=== PATIENT | female | born 1980 | race Caucasian/White ===

== ENCOUNTER 2016-10-05 15:44 | Emergency (ER) | payer OTHER ==
[~2016-10-05] VITALS: Ht 162.6 cm; Wt 81.8 kg
[2016-10-05 15:47] VITALS: BP 114/79; PULSE 99; RESP 16; O2SAT 97
[2016-10-05 17:38] LABS: BASOPHILS % (AUTO) 0.1 % (0-3); EOSINOPHILS % (AUTO) 1.8 % (0-5); MONOCYTES % (AUTO) 5.3 % (4-12); Mean Corpuscular Hemoglobin 28.2 pg (27.0-35.0); Mean Corpuscular Volume 84.2 fL (81-100); NEUTROPHILS % (AUTO) 79.1 % (40-74); Platelet Count 322 bil/L (150-400)
[2016-10-05 18:18] LABS: Magnesium 1.8 mg/dL (1.6-2.6)
--- NOTE | 2016-10-05 18:18 | ED.REPORT ---
HPI-Abd Pain F Under 40 Date of Service Oct 05, 2016 ED Provider: MD Danielito This is a 36 year old female with a history of stroke presenting to the ED complaining of diarrhea that began one month ago. Also reports emesis that began today. Associated symptoms include fever, chills, intermittent night sweats, lower abdominal pain, and bilateral low back pain. Denies dysuria, hematuria, constipation, hematemesis, or hematochezia. Currently on Augmentin for URI, prescribed at urgent care. Completed z-pack 2 weeks ago. Nursing Notes Stated Complaint: KIDNEY PAIN Chief Complaint: Female Abdominal Pain Nursing Notes Reviewed: Yes Allergies: Coded Allergies: No Known Allergies (Verified , 06/12/15) Scheduled PRN Ondansetron ODT (Zofran ODT) 4 Mg Tablet 4 MG PO Q4H PRN PRN For Nausea General Time Seen by MD: 18:17 Chief Complaint Diarrhea moderate Hx Obtained From: Patient Sudden in Onset?: Yes Onset Occurred: 1 week ago Symptom Duration: Since onset Severity: Current: Mild Pertinent Negative: Pt denies other symptoms Recent Healthcare: No recent hospitalization, Recent doctor visit Similar Sx Previous: No Past Medical History Past Medical History Reports: Stroke Past Surgical History Knee surgery Wrist surgery Cardio seal Smoking History Never Smoker Social History Alcohol Use: 1-3 per week Drug Use: Denies drug use Other Social History: Good social support, Lives with children Ambulatory Status Independent Review of Systems Constitutional: Reports: Chills, Fever Respiratory: Denies: Non-productive cough, Shortness of breath GI: Reports: Abdominal pain, Diarrhea, Nausea, Vomiting, Denies: Constipation Female: Denies: Dysuria Musculoskeletal: Reports: Back pain Complete sys rev & neg: except as marked. Physical Exam Initial Vital Signs Vital Signs (First) Date Time Temp Pulse Resp B/P Pulse Ox O2 Delivery O2 Flow Rate FiO2 10/05/16 15:47 36.8 99 16 114/79 97 Room Air Initial VS: Reviewed Head / Eyes: Atraumatic, Normocephalic, PERRL ENT: Mucous membranes moist, Conjunctiva normal, No scleral icterus Neck: Supple, Non-tender, Full range of motion Extremities: Vascular intact, Neuro intact, No swelling, No tenderness Skin: Warm, Dry, No cyanosis Neurologic: Alert, Oriented, Nonfocal Psychiatric: Mood/affect normal, Behavior normal, Normal thought content General/Constitutional: Awake, Alert Respiratory / Chest: Breath sounds NL, Breath sounds = bilat, No respiratory distress, No rales, No rhonchi, No wheezing Cardiovascular: Heart rate NL, Regular rhythm, Heart sounds NL, Peripheral circulation NL Abdomen: Soft, Non-tender, McBurney's non-tender, No guarding, No rebound, BS normoactive, No distention, No hernia, No palpable mass Back: Inspection NL, Non-tender, No CVA tenderness Interpretation & Diagnostics ABDOMEN CT IMPRESSION: 1. No acute intra-abdominal findings. Normal appendix. No findings to suggest colitis. Dictated by: Magda Wisdom M.D. on 10/05/2016 at 18:52 Approved by: Magda Wisdom M.D. on 10/05/2016 at 18:56 Lab Results Interpretation Result Diagram: 10/05/16 1715 10/05/16 1715 Test 10/05/16 17:15 10/05/16 18:30 White Blood Count 10.6th/mm3 (3.8-10.1) Red Blood Count 5.00mil/mm3 (3.90-5.20) Hemoglobin 14.1g/dL (12.0-15.6) Hematocrit 42.1% (35.0-46.0) Mean Corpuscular Volume 84.2fL (81-100) Mean Corpuscular Hemoglobin 28.2pg (27.0-35.0) Mean Corpuscular Hemoglobin Concent 33.5% (32.0-37.0) Red Cell Distribution Width 13.1% (12.3-15.4) Platelet Count 322bil/L (150-400) Neutrophils (%) (Auto) 79.1% (40-74) Lymphocytes (%) (Auto) 13.5% (14-46) Monocytes (%) (Auto) 5.3% (4-12) Eosinophils (%) (Auto) 1.8% (0-5) Basophils (%) (Auto) 0.1% (0-3) Sodium Level 140mEq/L (134-144) Potassium Level 3.9mEq/L (3.5-5.2) Chloride Level 99mEq/L (97-108) Carbon Dioxide Level 26mmol/L (18-29) Blood Urea Nitrogen 14mg/dL (6-20) Creatinine 0.56mg/dL (0.57-1.00) Estimat Glomerular Filtration Rate 178mL/min (>59) Glucose Level 101mg/dL (60-99) Lactic Acid Level 0.8mmol/L (0.4-2.0) Calcium Level 8.9mg/dL (8.5-10.1) Magnesium Level 1.8mg/dL (1.6-2.6) Total Bilirubin 0.6mg/dL (0.0-1.2) Aspartate Amino Transf (AST/SGOT) 15U/L (0-50) Alanine Aminotransferase (ALT/SGPT) 12U/L (0-32) Alkaline Phosphatase 87U/L (25-150) Total Protein 7.8g/dL (6.4-8.4) Albumin 4.5g/dL (3.4-5.0) Lipase 48U/L (13-60) Hold [place] Top Tube Received (Received) Urine Color Yellow (YELLOW) Urine Appearance Clear (CLEAR,HAZY) Urine pH 5.5 (5.0-8.0) Urine Specific [place] 1.025 (1.003-1.035) Urine Protein Negativemg/dL (NEG,TRACE) Urine Glucose (UA) Negativemg/dL (NEGATIVE) Urine Ketones Negativemg/dL (NEGATIVE) Urine Occult Blood Negative (NEGATIVE) Urine Nitrite Negative (NEGATIVE) Urine Bilirubin Negative (NEGATIVE) Urine Urobilinogen Normalmg/dL (NORMAL) Urine Leukocyte Esterase Negative (NEGATIVE) Urine RBC 0-2/hpf (0-2) Urine WBC 0-5/hpf (0-5) Urine Epithelial Cells Moderate/hpf (NONE-MOD) Urine Crystals None seen (NONE SEEN) Urine Bacteria Few/hpf (NONE-FEW) Urine Hyaline Casts None/lpf (NONE) Urine Granular Casts None seen (NONE SEEN) Urine Waxy Casts None seen (NONE SEEN) Urine Red Blood Cell Casts None seen (NONE SEEN) Urine White Blood Cell Casts None seen (NONE SEEN) Urine Mucus Present (None Seen) Urine Trichomonas None seen (NONE SEEN) Urine Yeast None (NONE SEEN) Urinalysis Comment None Urine Culture Reflexed Not indicated Re-Eval/Medical Decision Med Decision/Clinical Course 36-year-old female with past medical history of 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 Differential diagnosis includes but is not limited to gastroenteritis versus colitis versus gastritis versus C. difficile. Labs are remarkable for very mild leukocytosis, otherwise normal CBC. CMP is unremarkable. She has no evidence of urinary tract infection on urinalysis. CT scan does not show any evidence of colitis. He was able to tolerate by mouth in the emergency department. At this time, I do not feel she requires treatment for C. difficile , given her normal vitals and normal labs. She is amenable to discharge and has been given very strict return precautions and will follow-up this week with her primary care physician. Re-Evaluation/Progress : Time of Eval: 19:49 Re-Evaluation/Progress Note: Discussed lab and imaging results, plan for discharge, pt understands and agrees with plan, all questions addressed. Counseled Regarding: Diagnosis, Lab results, Need for follow-up, When/why to return to ED Discharge & Departure Primary Impression: Diarrhea Disposition: Home Discharge Condition All VS Reviewed: Yes Condition: Stable Patient Instructions: Acute Diarrhea (GEN) Additional Instructions: Your labs and imaging studies did not indicate an acute cause for your symptoms today. Take Zofran as prescribed for nausea. Follow-up with your primary care provider, call tomorrow to schedule an appointment. Return to the emergency department for any new or worsening symptoms such as fever. Referrals: [facility] (PCP) Scribe Attestation Portions of this note were transcribed by Florentino Singh. I, Dr. Esteves personally performed the history, physical exam and medical decision-making; I reviewed and confirmed the accuracy of the information in the transcribed note. Signed by: willam Geller. 10/05/2016, 22:00. Eunice Estevse MD Oct 05, 2016 18:18 FLORENTINO SINGH Oct 05, 2016 18:19
[2016-10-05] MEDS ORDERED: Ondansetron 2 mg/mL 2 mL Inj IVPUSH ONE (18:45)
--- NOTE | 2016-10-05 18:58 | DRSVH ---
PROCEDURE: CT ABDOMEN AND PELVIS WITH CONTRAST ([id number]) INDICATIONS: ?colitis TECHNIQUE: After the administration of intravenous contrast, 5 mm thick sections acquired from the diaphragm to the symphysis. 5 mm coronal and sagittal reformats were acquired. For radiation dose reduction, the following was used: automated exposure control, adjustment of mA and/or kV according to patient siz e. COMPARISON: None. FINDINGS: Image quality: Excellent. ABDOMEN: Lung bases: Lung bases are clear. Heart size is normal. Solid organs: Liver and spleen are normal in size and enhancement. Gallbladder is unremarkable. Bi liary system is non dilated. Pancreas enhances normally. No adrenal nodules. Kidneys demonstrate n ormal size and enhancement, without hydronephrosis. Peritoneum and bowel: Bowel loops demonstrate normal wall thickness and caliber. The appendix is thi n walled and gas filled. No free fluid or air. Nodes and vessels: No retroperitoneal or mesenteric adenopathy by size criteria. Aorta and inferior vena cava are normal in size. Miscellaneous: No ventral hernias. PELVIS: Genitourinary: Bladder is decompressed. Uterus and ovaries are grossly unremarkable. Miscellaneous: No inguinal hernias or adenopathy. Bones: No suspicious bony lesions. No vertebral body compression fractures. IMPRESSION: 1. No acute intra-abdominal findings. Normal appendix. No findings to suggest colitis. Dictated by: Magda Wisdom M.D. on 10/05/2016 at 18:52 Approved by: Magda Wisdom M.D. on 10/05/2016 at 18:56
[2016-10-05 19:16] LABS: APPEARANCE,URINE CLEAR (CLEAR,HAZY); COLOR,URINE YELLOW (YELLOW); PH,URINE 5.5 (5.0-8.0)
[2016-10-05 19:17] LABS: OCCULT BLOOD,URINE NEGATIVE (NEGATIVE); UROBILINOGEN,URINE NORMAL (NORMAL)
[2016-10-05] MEDS ORDERED: ONDA4TAB9 PO (19:53)
[2016-10-05 20:06] VITALS: BP 138/73; PULSE 86; RESP 16; O2SAT 98
[2016-10-05 20:08] VITALS: BP 138/73; PULSE 86; RESP 16; O2SAT 99
== END 2016-10-05 20:09 | disposition home or self-care (01) ==
LOC: SED 15:44
DX: R19.7 Diarrhea, unspecified (principal); R11.10 Vomiting, unspecified; R50.9 Fever, unspecified; R10.30 Lower abdominal pain, unspecified; M54.5 Low back pain; R68.83 Chills (without fever); R61 Generalized hyperhidrosis; Z86.73 Personal history of transient ischemic attack (TIA), and cerebral infarction without residual deficits; Z87.74 Personal history of (corrected) congenital malformations of heart and circulatory system
CPT/HCPCS: 36415; 74177; 80053; 81000; 81025; 83605; 83690; 83735; 85025; 87804; 96361; 96374; 99285; J2405; Q9967

== ENCOUNTER 2017-02-05 17:44 | Emergency (ER) | payer OTHER ==
[~2017-02-05] VITALS: Ht 160 cm; Wt 81.8 kg
[~2017-02-05 17:44] MED LIST: ONDA4TAB9 PO
[2017-02-05 17:53] VITALS: BP 115/72; PULSE 70; RESP 16; O2SAT 96
--- NOTE | 2017-02-05 19:36 | ED.REPORT ---
HPI-Extremity Problem Lower Date of Service February 05, 2017 ED Provider: Lele Dobbins MD 36 y/o female with a hx of CVA presents to the ED complaining of right leg swelling, onset 5 days ago. The pt states she thought it was initially a bug bite because she was working in her yard. She elevated her leg for a few days. She believed the antibiotics she was taking for a sinus infection would also resolve her current sx. Associated sx include right leg pain which radiates up her leg. The pt is not taking any blood thinners or -control. Nursing Notes Stated Complaint: R/ANKLE SWELLING/NUMBNESS Chief Complaint: Extremity Trauma Nursing Notes Reviewed: Yes Allergies: Coded Allergies: No Known Allergies (Verified , 06/12/15) Scheduled PRN Ondansetron ODT (Zofran ODT) 4 Mg Tablet 4 MG PO Q4H PRN PRN For Nausea General Time Seen by MD: 19:30 Chief Complaint Other (Right leg swelling) Hx Obtained From: Patient Arrived By: Walk-in Onset Occurred: 5 days ago Symptom Duration: Since onset Location: : Leg right Quality: Throbbing Severity: Current: Moderate Severity: Maximum: Moderate Recent Healthcare: No recent doctor visit Similar Sx Previous: No Past Medical History Past Medical History Bipolar Disorder Anxiety Reports: Stroke Reports: Depression Past Surgical History Knee surgery Wrist surgery Cardio seal Cls[place]re PFO Left ACL Smoking History Never Smoker Social History Alcohol Use: 1-3 per week Drug Use: Denies drug use Other Social History: Good social support, Lives with children Ambulatory Status Independent Review of Systems Musculoskeletal: Reports: Extremity pain (Right leg), Extremity swelling ( Right leg) Complete sys rev & neg: except as marked. Physical Exam Inguinal adenopathy Initial Vital Signs Vital Signs (First) Date Time Temp Pulse Resp B/P Pulse Ox O2 Delivery O2 Flow Rate FiO2 02/05/17 17:53 36.8 70 16 115/72 96 Room Air Initial VS: Reviewed Head / Eyes: Atraumatic, Normocephalic Neck: Supple, Non-tender, Full range of motion Respiratory: Breath sounds normal, Clear to auscultation, No respiratory distress Cardiovascular: Regular rate & rhythm, Heart sounds normal, Intact distal pulses Abdomen / GI: Soft, Non-tender, No guarding, No rebound Upper Extremities: Vascular intact, Neuro intact, No swelling, No tenderness Skin: Warm, Dry, No cyanosis Neurologic: Alert, Oriented, Nonfocal Lower Extremity / Pelvis / MS: Full range of motion, No erythema, No deformity , Neurologic intact, Vascular intact Right Leg / Calf: Positive: Swelling present..., Warmth present No cord syndrome. Ankle / Foot: Atraumatic, Inspection NL, Full range of motion, No swelling, No erythema, Non-tender, No deformity, Neurologic intact, Vascular intact General/Constitutional: Awake, Alert, Well appearing, Cooperative Interpretation & Diagnostics PROCEDURE: US VEINOUS LEG DUPLEX UNILATERAL, RIGHT IMPRESSION: No evidence of deep venous thrombosis Dictated by: Florentino Palmer M.D. on 02/05/2017 at 20:54 Approved by: Florentino Palmer M.D. on 02/05/2017 at 20:54 Re-Eval/Medical Decision Re-Evaluation/Progress : Time of Eval: 21:51 Re-Evaluation/Progress Note: Rechecked pt. Discussed imaging results and diagnosis. Informed the pt of the plan to discharge. Pt understands and agrees with plan. F/U instructions and RTER warning given. All questions addressed. Counseled Regarding: Diagnosis, Lab results, Need for follow-up, When/why to return to ED Discharge & Departure Impression: Primary Impression: Leg pain, right Disposition: Home Discharge Condition All VS Reviewed: Yes Condition: Stable Additional Instructions: Emergency Department evaluation included interview, examination and ultrasound leg. We do not find evidence of infection or clot on examination ultrasound. Elevate legs above the level apartment when able and keeps the knee bent slightly. May use ibuprofen 400 mg every 6-8 hours as needed for pain. Follow- up with primary care in 1 week if swelling does not resolve, if unable to get into primary care recheck in emergency department. Return to emergency department sooner for increasing swelling fevers chills increasing pain. Referrals: Anne-Marie Leach (PCP) Scribe Attestation Portions of this note were transcribed by Bhavana Jha. I, , personally performed the history, physical exam and medical decision-making;I reviewed and confirmed the accuracy of the information in the transcribed note. Signed by Tigre Sanchez. 02/05/17 0810 copies to: Anne-Marie Leach Donald L MD February 05, 2017 19:36 Bhavana Jha February 05, 2017 19:43
--- NOTE | 2017-02-05 20:57 | DRSVH ---
PROCEDURE: US VEINOUS LEG DUPLEX UNILATERAL, RIGHT INDICATIONS: R leg swelling and pain TECHNIQUE: Real-time imaging, as well as color and pulse Doppler interrogation, were performed of the lower extr emity deep veins from the inguinal ligament to the popliteal fossa. COMPARISON: None. FINDINGS: The deep veins are normally compressible, and free of intraluminal thrombus. Color and pu lse Doppler demonstrate normal phasic intraluminal flow. There is normal augmentation response to di stal compression maneuver. IMPRESSION: No evidence of deep venous thrombosis Dictated by: Florentino Palmer M.D. on 02/05/2017 at 20:54 Approved by: Florentino Palmer M.D. on 02/05/2017 at 20:54
== END 2017-02-05 22:14 | disposition home or self-care (01) ==
LOC: SED 17:44
DX: M79.604 Pain in right leg (principal)